=== PATIENT | female | born 1975 | race Hispanic/Latino ===

== ENCOUNTER 2018-04-13 16:43 | Emergency (ER) | payer SELFPAY ==
[2018-04-13] MEDS ORDERED: NACL 0.9% 1000 ML 2,000 ML IV ONE (18:36)
[2018-04-13] MEDS ORDERED: TYLENOL PO ONE (18:37)
[2018-04-13] MEDS ORDERED: LIDODERM 5% TD STA (18:37)
[2018-04-13 18:38] LABS: BUN/Creatinine Ratio 8; Blood Urea Nitrogen 5 mg/dL (7-17); Calcium 9.8 mg/dL (8.4-10.2); Hemolysis Index 7
--- NOTE | 2018-04-13 18:38 | Emergency Department Report ---
ED General Adult HPI - General Chief complaint: Pain General Stated complaint: BODY PAIN/MARITA Time Seen by Provider: 04/13/18 18:31 Source: patient Mode of arrival: Ambulatory Limitations: No Limitations - History of Present Illness Initial comments: This is a 42-year-old female who is not known to this provider previously. She reports that she does not have a primary care doctor currently, and reports no chronic medical conditions, reports surgical history of tubal ligation, hysterectomy. Presents to the ER with a complaint of uncomfortable breathing and possible low potassium for 5 days. She reports to evaluations at [facility] within t he past week for similar symptoms. She also complains of diffuse muscle cramping, chronic back pain. She denies vomiting, diaphoresis, exertional shortness of breath, oral contraceptive use, recent trips, recent surgeries, DVT, pulmonary embolus risk factors. Symptoms intermittent for the past 5 days, did not radiate anywhere, and do not have exacerbating or relieving factors that she is aware of. The patient also requests a referral to a pain specialist. -: Gradual Location: chest, back Quality: aching Consistency: intermittent Improves with: none Worsens with: none Associated Symptoms: loss of appetite, malaise. denies: confusion, cough, diaphoresis, fever/chills, headaches, nausea/vomiting, rash, seizure, shortness of breath, syncope, weakness - Related Data Previous Rx's Medication Instructions Recorded Last Taken Type Acetaminophen [Tylenol Arthritis] 650 mg PO Q6HR PRN #30 tablet.er 04/13/18 Unknown Rx Allergies Allergy/AdvReac Type Severity Reaction Status Date / Time butorphanol Allergy Nausea Verified 04/13/18 17:29 codeine Allergy Shortness Verified 04/13/18 17:29 of Breath divalproex sodium Allergy Shortness Verified 04/13/18 17:29 of Breath fentanyl Allergy Shortness Verified 04/13/18 17:29 of Breath hydroxyzine Allergy Shortness Verified 04/13/18 17:29 of Breath ketorolac Allergy Shortness Verified 04/13/18 17:29 of Breath metoclopramide Allergy Shortness Verified 04/13/18 17:29 of Breath prochlorperazine Allergy Shortness Verified 04/13/18 17:29 of Breath propoxyphene Allergy Shortness Verified 04/13/18 17:29 of Breath risperidone Allergy Shortness Verified 04/13/18 17:29 of Breath tramadol Allergy Shortness Verified 04/13/18 17:29 of Breath trazodone Allergy Shortness Verified 04/13/18 17:29 of Breath ED Review of Systems ROS: Stated complaint: BODY PAIN/MARITA Other details as noted in HPI Constitutional: malaise. denies: fever Eyes: denies: eye discharge ENT: denies: congestion Respiratory: denies: wheezing Cardiovascular: denies: syncope Gastrointestinal: denies: vomiting Genitourinary: denies: dysuria Musculoskeletal: back pain, arthralgia, myalgia Neurological: weakness Psychiatric: anxiety ED Past Medical Hx - Surgical History Additional Surgical History: tubligation, hysterectomy - Social History Smoking Status: Current Every Day Smoker - Medications Home Medications: Home Medications Medication Instructions Recorded Confirmed Last Taken Type Acetaminophen [Tylenol Arthritis] 650 mg PO Q6HR PRN #30 tablet.er 04/13/18 Un known Rx ED Physical Exam - General Limitations: No Limitations General appearance: alert, in no apparent distress - Head Head exam: Present: atraumatic, normocephalic - Eye Eye exam: Present: normal appearance, EOMI. Absent: nystagmus - ENT ENT exam: Present: normal exam, normal orophraynx, mucous membranes moist, normal external ear exam - Neck Neck exam: Present: normal inspection, full ROM. Absent: tenderness, meningismus - Respiratory Respiratory exam: Present: normal lung sounds bilaterally. Absent: respiratory distress - Cardiovascular Cardiovascular Exam: Present: normal rhythm, tachycardia, normal heart sounds. Absent: systolic murmur, diastolic murmur, rubs, gallop - GI/Abdominal GI/Abdominal exam: Present: soft. Absent: distended, tenderness, guarding, rebound, rigid, pulsatile mass - Extremities Exam Extremities exam: Present: normal inspection, full ROM, normal capillary refill, other (2+ pulses noted in the bilateral upper, lower extremities. Compartments soft. No long bony tenderness. The pelvis is stable.). Absent: pedal edema, calf tenderness - Back Exam Back exam: Present: normal inspection, full ROM, paraspinal tenderness. Absent: tenderness, CVA tenderness (R), vertebral tenderness - Neurological Exam Neurological exam: Present: alert, oriented X3, CN II-XII intact, normal gait, other (Extraocular movements intact. Tongue midline. No facial droop. Facial sensation intact to light touch in the V1, V2, V3 distribution bilaterally. 5 and 5 strength in 4 extremities.. Sensation is intact to light touch in 4 extremities.). Absent: motor sensory deficit - Psychiatric Psychiatric exam: Present: anxious - Skin Skin exam: Present: warm, dry, intact, normal color. Absent: rash ED Course Vital Signs 04/13/18 04/13/18 04/13/18 17:17 18:49 19:07 Temperature 97.0 F L Pulse Rate 120 H Respiratory 18 18 Rate Blood Pressure 169/104 O2 Sat by Pulse 100 100 Oximetry - Reevaluation(s) Reevaluation #1: 04/13/18 19:51 Elevated blood pressure is reviewed and appreciated, it is not acutely symptomatic; please reference the [employer] clinical policy on hypertension which is not acutely asymptomatic. The patient may follow up with an outpatient primary care physician or paratransit driver for this. ED Medical Decision Making - Lab Data Result diagrams: 04/13/18 18:04 04/13/18 18:04 Vital Signs 04/13/18 04/13/18 04/13/18 17:17 18:49 19:07 Temperature 97.0 F L Pulse Rate 120 H Respiratory 18 18 Rate Blood Pressure 169/104 O2 Sat by Pulse 100 100 Oximetry 04/13/18 19:16 Temperature Pulse Rate 99 H Respiratory 13 Rate Blood Pressure 162/92 O2 Sat by Pulse 100 Oximetry Vital Signs 04/13/18 04/13/18 04/13/18 17:17 18:49 19:07 Temperature 97.0 F L Pulse Rate 120 H Respiratory 18 18 Rate Blood Pressure 169/104 O2 Sat by Pulse 100 100 Oximetry 04/13/18 19:16 Temperature Pulse Rate 99 H Respiratory 13 Rate Blood Pressure 162/92 O2 Sat by Pulse 100 Oximetry Lab Results 04/13/18 04/13/18 04/13/18 Range/Units 18:04 18:04 18:46 WBC 7.5 (4.5-11.0) K/mm3 RBC 4.57 (3.65-5.03) M/mm3 Hgb 15.4 H (10.1-14.3) gm/dl Hct 45.6 H (30.3-42.9) % MCV 100 H (79-97) fl MCH 34 H (28-32) pg MCHC 34 (30-34) % RDW 13.7 (13.2-15.2) % Plt Count 305 (140-440) K/mm3 PT 12.4 (12.2-14.9) Sec. INR 0.89 (0.87-1.13) APTT 27.2 (24.2-36.6) Sec. D-Dimer < 135.0 (0-234) ng/mlDDU Sodium 141 (137-145) mmol/L Potassium 3.7 (3.6-5.0) mmol/L Chloride 95.2 L (98-107) mmol/L Carbon Dioxide 35 H (22-30) mmol/L Anion Gap 15 mmol/L BUN 5 L (7-17) mg/dL Creatinine 0.6 L (0.7-1.2) mg/dL Estimated GFR > 60 ml/min BUN/Creatinine Ratio 8 % Glucose 83 (65-100) mg/dL Calcium 9.8 (8.4-10.2) mg/dL Magnesium 2.00 (1.7-2.3) mg/dL Troponin T (0.00-0.029) ng/mL Salicylates (2.8-20.0) mg/dL Acetaminophen (10.0-30.0) ug/mL 04/13/18 04/13/18 04/13/18 Range/Units 18:46 18:46 18:46 WBC (4.5-11.0) K/mm3 RBC (3.65-5.03) M/mm3 Hgb (10.1-14.3) gm/dl Hct (30.3-42.9) % MCV (79-97) fl MCH (28-32) pg MCHC (30-34) % RDW (13.2-15.2) % Plt Count (140-440) K/mm3 PT (12.2-14.9) Sec. INR (0.87-1.13) APTT (24.2-36.6) Sec. D-Dimer (0-234) ng/mlDDU Sodium (137-145) mmol/L Potassium (3.6-5.0) mmol/L Chloride (98-107) mmol/L Carbon Dioxide (22-30) mmol/L Anion Gap mmol/L BUN (7-17) mg/dL Creatinine (0.7-1.2) mg/dL Estimated GFR ml/min BUN/Creatinine Ratio % Glucose (65-100) mg/dL Calcium (8.4-10.2) mg/dL Magnesium (1.7-2.3) mg/dL Troponin T < 0.010 (0.00-0.029) ng/mL Salicylates < 0.3 L (2.8-20.0) mg/dL Acetaminophen < 5.0 L (10.0-30.0) ug/mL - EKG Data -: EKG Interpreted by Me EKG shows normal: sinus rhythm Rate: normal - EKG Data When compared to previous EKG there are: previous EKG unavailable 04/13/18 19:47 Sinus, 90 bpm, normal axis, QTC prolonged, motion artifact, no prior for comparison, not consistent with ST elevation myocardial infarction. - Radiology Data Radiology results: image reviewed interpreted by me: X-ray of the chest is unremarkable for acute disease. - Medical Decision Making Differential diagnosis, and clearly was not limited to: Fibromyalgia, pleurisy, myocarditis, pericarditis, pulmonary embolus, pneumothorax, acute coronary syndrome, electrolyte derangement Assessment and plan: 42-year-old female with a complaint of nonspecific discomfort with breathing, saturating at 99-100% on room air, with clear breath sounds, low risk by well's criteria, no pulmonary embolus or DVT risk factors, negative d-dimer, tachycardia resolved. Patient is afebrile with reassuring vital signs with the exception of elevated blood pressure. Patient low risk by heart score, low risk by NILESH score, clinically sober at this time, with a negative troponin. As per the [employer] clinical policy, myocardial infarction may be excluded with 1 set of cardiac enzymes if symptoms present for greater than 8 hours; patient's symptoms present 5 days. Patient's tachycardia has resolved and she is resting comfortably in a stretcher, in no acute distress, and playing on a cellular phone. She is suitable to follow up with an outpatient primary care doctor or paratransit driver for her nonspecific discomfort with breathing, and she has also requested a referral to a pain specialist, and will be given local contact information. Critical care attestation.: If time is entered above; I have spent that time in minutes in the direct care of this critically ill patient, excluding procedure time. ED Disposition Clinical Impression: History of respiratory distress Disposition: DC-01 TO HOME OR SELFCARE Is pt being admited?: No Does the pt Need Aspirin: No Condition: Good Additional Instructions: Take the medications as needed/directed. Follow-up with a pain specialist within the next 6 weeks. Follow up with the primary care doctor or paratransit driver within the next week. Return to the ER right away with lethargy, irritability, projectile vomiting, change in mental status, confusion, inability to speak, inability to breathe. Referrals: GALINDO WATERS MD [Staff Physician] - 3-5 Days [facility] [Provider Group] - 3-5 Days [facility] [Provider Group] - 3-5 Days
[2018-04-13 18:48] LABS: Hematocrit 45.6 % (30.3-42.9); Hemoglobin 15.4 gm/dl (10.1-14.3); Mean Corpuscular HGB Conc 34 % (30-34); Mean Corpuscular Hemoglobin 34 pg (28-32); Mean Corpuscular Volume 100 fl (79-97); Platelet Count 305 K/mm3 (140-440); Red Blood Count 4.57 M/mm3 (3.65-5.03); Red Cell Distribution Width 13.7 % (13.2-15.2)
[2018-04-13 19:04] LABS: INR 0.89 (0.87-1.13)
[2018-04-13 19:05] LABS: Partial Thromboplastin Time 27.2 Sec. (24.2-36.6)
--- NOTE | 2018-04-13 20:10 | XRay Report ---
FINAL REPORT EXAM: XR CHEST ROUTINE 2V HISTORY: pain TECHNIQUE: Two view chest PA and lateral PRIORS: None. FINDINGS: Cardiac and mediastinal contours are unremarkable. No focal pulmonary infiltrate is identified. No pleural fluid collection seen. Pulmonary vasculature is unremarkable. IMPRESSION: Negative two-view chest
[2018-04-13 21:51] VITALS: BP 137/101
== END 2018-04-13 21:52 | disposition home or self-care (01) ==
LOC: ED 16:43
DX: R06.03 Acute respiratory distress (principal); F17.200 Nicotine dependence, unspecified, uncomplicated; F41.9 Anxiety disorder, unspecified; Z98.51 Tubal ligation status; Z88.8 Allergy status to other drugs, medicaments and biological substances; Z90.710 Acquired absence of both cervix and uterus
CPT/HCPCS: 36415; 71046; 80048; 83735; 84484; 85027; 85379; 85610; 85730; 93005; 93010; 99284; G0480; J7030; 80320